=== PATIENT | male | born 1960 | race Caucasian/White ===

== ENCOUNTER 2017-06-28 15:32 | Emergency (ER) | payer BC, OTHER ==
[2017-06-28] VITALS (7 sets, daily range): BP systolic 120–168; BP diastolic 56–109; PULSE 89–142; RESP 12–20; TEMP 98.8; O2SAT 97–98
[~2017-06-28] VITALS: Ht 180.3 cm; Wt 90.0 kg
[2017-06-28] MEDS ORDERED: HALOPERIDOL LACTATE 5 MG/ML AMP ONE ×2 (16:01)
[2017-06-28] MEDS ORDERED: LORazepam 2 MG/ML VIAL ONE ×2 (16:02)
[2017-06-28] MEDS ORDERED: SODIUM CHLOR 0.9% 1000 ML INJ 1,000 ML IV SCH ×2 (16:03)
[2017-06-28] MEDS ORDERED: HALOPERIDOL LACTATE 5 MG/ML AMP IM ONE ×2 (16:15)
[2017-06-28] MEDS ORDERED: LORazepam 2 MG/ML VIAL IM ONE ×2 (16:15)
[2017-06-28] MEDS ORDERED: SODIUM CHLORIDE 0.9% FLUSH 10 ML FLUSH IV FLUSH PRN ×2 (16:15)
[2017-06-28 16:23] LABS: AUTOMATED NEUTROPHIL # 2.9 TH/MM3 (1.8-7.7); BASOPHIL # 0.1 TH/MM3 (0-0.2); BASOPHIL % 1.1 % (0.0-2.0); EOSINOPHIL # 0.1 TH/MM3 (0-0.4); EOSINOPHIL % 1.7 % (0.0-4.0); HEMATOCRIT 46.5 % (39.0-51.0); HEMOGLOBIN 16.2 GM/DL (13.0-17.0); LYMPH % 34.8 % (9.0-44.0); LYMPHOCYTE # 1.9 TH/MM3 (1.0-4.8); MEAN CELL VOLUME 93.1 FL (80.0-100.0); MEAN CORPUSCULAR HEMOGLOBIN 32.4 PG (27.0-34.0); MEAN CORPUSCULAR HGB CONC 34.8 % (32.0-36.0); MEAN PLATELET VOLUME 6.7 FL (7.0-11.0); MONO % 8.2 % (0.0-8.0); MONOCYTE # 0.4 TH/MM3 (0-0.9); NEUT % 54.2 % (16.0-70.0); PLATELET COUNT 203 TH/MM3 (150-450); RED BLOOD COUNT 4.99 MIL/MM3 (4.50-5.90); RED CELL DISTRIBUTION WIDTH 13.2 % (11.6-17.2); WHITE BLOOD COUNT 5.4 TH/MM3 (4.0-11.0)
--- NOTE | 2017-06-28 16:29 | PD ---
HPI Chief Complaint: Medical Clearance Time Seen by Provider: 16:02 Travel History International Travel<30 days: No Contact w/Intl Traveler<30days: No Traveled to known affect area: No History of Present Illness HPI 56-year-old male presents from [facility] for medical clearance. Patient says he was complaining of right shoulder and right chest rib pain after tripping and falling to his right side 3 days ago. He denies hitting his head or loss of consciousness. Denies neck pain or back pain. Denies chest pain, shortness of breath, abdominal pain, nausea, vomiting. Denies suicidal or homicidal ideations. Describes the pain as an ache. Symptoms are mild in severity. Shoulder pain is aggravated with movement. He denies paresthesias, loss of sensation, decreased range of motion, decreased strength of the affected extremity. Denies hemoptysis. Pain is aggravated with palpation and deep breathing. Has not taken any medication or drainage from this alleviates his symptoms. Reports alcohol use daily. Denies illicit drug use. Denies tobacco use. No known allergies. History of hypertension. Has no other medical complaints. No other modifying factors or associated signs and symptoms. FOR[facility]LY [facility], LATER [facility] Past Medical History Medical History: Denies Significant Hx Bipolar Disorder: Yes Depression: Yes Parkinson's Disease: Yes Migraines: Yes Past Surgical History Surgical History: No Previous Surgery Social History Alcohol Use: No Tobacco Use: No Substance Use: No Allergies-Medications (Allergen,Severity, Reaction): Coded Allergies: No Known Allergies (Unverified , 06/28/17) Reported Meds & Prescriptions Reported Meds & Active Scripts Active Ibuprofen 800 Mg Tab 800 Mg PO Q6HR PRN Review of Systems Except as stated in HPI: all other systems reviewed are Neg Physical Exam Narrative GENERAL: Well-nourished, well-developed male patient, in no acute distress SKIN: Warm and dry. HEAD: Atraumatic. Normocephalic. No facial or scalp abrasions or lacerations noted. EYES: Pupils equal and round at 5 mm with brisk reaction. No scleral icterus. No injection or drainage. No raccoon eyes. ENT: Mucosa pink and moist. No erythema or exudates. No uvular edema. No uvular , palatal, or tonsillar deviation. Airway patent. Nares without nasal blood. No rhinorrhea. EARS: Bilateral pinnae and external canals appear within normal limits. Bilateral tympanic membranes without erythema, dullness, hemotympanum or perforation. No otorrhea. No goldberg signs. NECK: Moving freely. Trachea midline. No lymphadenopathy. No obvious deformities. CHEST: Right lateral chest approximately the 6-8th rib with tenderness on palpation; without deformity or crepitance. No retractions or use of accessory muscles. CARDIOVASCULAR: Regular rate and rhythm. No murmur appreciated. RESPIRATORY: No accessory muscle use. Clear to auscultation. Breath sounds equal bilaterally. GASTROINTESTINAL: Abdomen soft, non-tender, nondistended. Hepatic and splenic margins not palpable. Bowel sounds are active 4 quadrants. MUSCULOSKELETAL: Right shoulder with full range of motion and greater than 45 abduction; shoulder sequel; without erythema, edema, ecchymosis; no obvious deformity. Right upper extremity supple and non-tense with 2+ radial pulses sensory intact without erythema or edema. No obvious deformities. No clubbing. No cyanosis. No edema. BACK: No obvious deformities. Patient sitting up in bed at 90. NEUROLOGICAL: Awake and alert. Oriented 3. No obvious cranial nerve deficits. Motor grossly within normal limits. Normal speech. Moves all extremities. 5/5 strength to all extremities. Sensory intact. PSYCHIATRIC: Appropriate mood and affect; insight and judgment normal. Data Data Last Documented VS Vital Signs Date Time Temp Pulse Resp B/P (MAP) Pulse Ox O2 Delivery O2 Flow Rate FiO2 06/28/17 21:59 89 12 128/78 (95) 98 Room Air 06/28/17 15:46 98.8 Orders Orders Haloperidol Inj (Haldol Inj) (06/28/17 16:01) Lorazepam Inj (Ativan Inj) (06/28/17 16:02) Haloperidol Inj (Haldol Inj) (06/28/17 16:15) Lorazepam Inj (Ativan Inj) (06/28/17 16:15) Complete Blood Count With Diff (06/28/17 16:03) Comprehensive Metabolic Panel (06/28/17 16:03) Electrocardiogram (06/28/17 16:03) Psych Screen (06/28/17 16:03) Drug Screen, Random Urine (06/28/17 16:03) Alcohol (Ethanol) (06/28/17 16:03) Salicylates (Aspirin) (06/28/17 16:03) Tylenol (Acetaminophen) (06/28/17 16:03) Iv Access Insert/Monitor (06/28/17 16:03) Sodium Chlor 0.9% 1000 Ml Inj (Ns 1000 M (06/28/17 16:03) Sodium Chloride 0.9% Flush (Ns Flush) (06/28/17 16:15) Restraints Violent (06/28/17 16:15) Shoulder, Complete (>2vws) (06/28/17 17:12) Ribs, Uni (W/Exp Cxr-Min 3vw) (06/28/17 18:47) Resp Incentive Spirometry (06/28/17 ) Ed Discharge Order (06/28/17 20:18) Ibuprofen (Motrin) (06/28/17 20:30) Labs Laboratory Tests Test 06/28/17 16:10 06/28/17 19:27 White Blood Count 5.4 TH/MM3 Red Blood Count 4.99 MIL/MM3 Hemoglobin 16.2 GM/DL Hematocrit 46.5 % Mean Corpuscular Volume 93.1 FL Mean Corpuscular Hemoglobin 32.4 PG Mean Corpuscular Hemoglobin Concent 34.8 % Red Cell Distribution Width 13.2 % Platelet Count 203 TH/MM3 Mean Platelet Volume 6.7 FL Neutrophils (%) (Auto) 54.2 % Lymphocytes (%) (Auto) 34.8 % Monocytes (%) (Auto) 8.2 % Eosinophils (%) (Auto) 1.7 % Basophils (%) (Auto) 1.1 % Neutrophils # (Auto) 2.9 TH/MM3 Lymphocytes # (Auto) 1.9 TH/MM3 Monocytes # (Auto) 0.4 TH/MM3 Eosinophils # (Auto) 0.1 TH/MM3 Basophils # (Auto) 0.1 TH/MM3 CBC Comment DIFF FINAL Differential Comment Blood Urea Nitrogen 7 MG/DL Creatinine 0.88 MG/DL Random Glucose 91 MG/DL Total Protein 8.5 GM/DL Albumin 4.5 GM/DL Calcium Level 9.2 MG/DL Alkaline Phosphatase 106 U/L Aspartate Amino Transf (AST/SGOT) 36 U/L Alanine Aminotransferase (ALT/SGPT) 34 U/L Total Bilirubin 0.8 MG/DL Sodium Level 139 MEQ/L Potassium Level 4.2 MEQ/L Chloride Level 103 MEQ/L Carbon Dioxide Level 24.8 MEQ/L Anion Gap 11 MEQ/L Estimat Glomerular Filtration Rate 90 ML/MIN Salicylates Level LESS THAN 1.7 MG/DL Acetaminophen Level LESS THAN 2.0 MCG/ML Ethyl Alcohol Level 257 MG/DL Urine Opiates Screen NEG Urine Barbiturates Screen NEG Urine Amphetamines Screen NEG Urine Benzodiazepines Screen NEG Urine Cocaine Screen NEG Urine Cannabinoids Screen NEG MDM Medical Decision Making Medical Screen Exam Complete: Yes Emergency Medical Condition: Yes Medical Record Reviewed: Yes Differential Diagnosis Medical clearance, shoulder injury, shoulder strain, rib contusion, rib fracture Narrative Course Patient arrives under [employer] act from [facility] for medical clearance. He is being uncooperative and so the patient was placed in locked restraints. Patient's heart rate is elevated and his pupils are dilated. He will not answer questions or give any information. Psych screen ordered. Labs and EKG ordered. Dr. Ellis ordered Haldol and Ativan to be administered. EKG was sinus tachycardia; no ST elevation or depression; reviewed by Dr. Ellis. 1950: I spoke with the patient and he is being cooperative and answering questions. I spoke with him about taking the restraints off and he agreed to be cooperative and compliant. Restraints removed. 2001: CBC, CMP unremarkable. Drug screen negative. EtOH 257. 2030: Ibuprofen administered in the ER. Chest x-ray with no acute findings. Ibuprofen prescribed for home. Patient transferred back to [facility]. Instructed patient to follow up with primary care provider. Patient verbalizes understanding and agreement with treatment plan. Patient is medically cleared and stable for discharge. Discussed reasons to return to the emergency department. Patient agrees with treatment plan. The patients vital signs are stable and the patient is stable for outpatient follow-up and treatment. Patient discharged home, stable and in no acute distress. Diagnosis Primary Impression: Medical clearance for psychiatric admission Additional Impressions: Right shoulder injury Qualified Codes: S49.91XA - Unspecified injury of right shoulder and upper arm , initial encounter Alcohol intoxication Qualified Codes: F10.920 - Alcohol use, unspecified with intoxication, uncomplicated Right rib fracture Qualified Codes: S22.31XA - Fracture of one rib, right side, initial encounter for closed fracture Ref[facility]: [facility] Instructions: Abuse of Alcohol (ED), Alcohol Dependence (ED), Alcohol Intoxication (ED), General Instructions, Rib Fracture (ED), Shoulder Sprain (ED) Additional Instructions: Tylenol or ibuprofen as needed and as directed to reduce pain and inflammation Rest, ice, and compress extremity to decrease pain and inflammation Avoid aggravating activity; increase activity as tolerated Incentive spirometer every 2 hours while awake for deep breathing exercises Follow-up with primary care provider Follow-up with orthopedics as needed Return to the emergency department immediately with worsening symptoms Med/Other Pt SpecificInfo: Prescription(s) given Scripts Ibuprofen (Ibuprofen) 800 Mg Tab 800 MG PO Q6HR Y for PAIN, #30 TAB 0 Refills Prov: Felisha Espinal 06/28/17 Disposition: 70 TRANSFER TO OTHER FACILITY Condition: Stable Felisha Espinal Jun 28, 2017 16:29
[2017-06-28 16:40] LABS: ALT (GPT) 34 U/L (12-78)
[2017-06-28 16:42] LABS: ALKALINE PHOSPHATASE 106 U/L (45-117); TOTAL BILIRUBIN ADULT 0.8 MG/DL (0.2-1.0); TOTAL PROTEIN 8.5 GM/DL (6.4-8.2)
[2017-06-28 16:43] LABS: ALBUMIN 4.5 GM/DL (3.4-5.0); AST (GOT) 36 U/L (15-37); BICARBONATE 24.8 MEQ/L (21.0-32.0); BLOOD UREA NITROGEN 7 MG/DL (7-18); CALCIUM 9.2 MG/DL (8.5-10.1); CHLORIDE 103 MEQ/L (98-107); CREATININE 0.88 MG/DL (0.60-1.30); GLOMERULAR FILTRATION RATE 90 ML/MIN (>89); GLUCOSE,RANDOM 91 MG/DL (74-106); SODIUM (NA) 139 MEQ/L (136-145)
[2017-06-28 16:51] LABS: ACETAMINOPHEN LESS THAN 2.0 MCG/ML (10.0-30.0)
--- NOTE | 2017-06-28 18:08 | RADRPT ---
EXAM DATE/TIME: 06/28/2017 17:48 [facility] COMPARISON: No previous studies available for comparison. INDICATIONS : Pain post fall. MEDICAL HISTORY : None. SURGICAL HISTORY : None. ENCOUNTER: Initial ACUITY: 3 days PAIN SCORE: 3/10 LOCATION: Right Shoulder. FINDINGS: There is normal alignment of the glenohumeral joint a normal range of motion from internal to externa l rotation. No evidence of dislocation on the transscapular Y. view. The a.c. joint is intact. The re is cortical discontinuity of the posterior lateral right 8th rib. CONCLUSION: 1. Possible lateral right 8th rib fracture. 2. Glenohumeral joint is intact. Vikas Whitfield MD on June 28, 2017 at 18:05 Board Certified Radiologist. This report was verified electronically.
[2017-06-28] MEDS ORDERED: IBUP800T23 PO ×2 (20:14)
[2017-06-28] MEDS ORDERED: IBUPROFEN 800 MG TAB PO ONE ×2 (20:30)
--- NOTE | 2017-06-28 20:37 | RADRPT ---
EXAM DATE/TIME: 06/28/2017 19:10 [facility] COMPARISON: No previous studies available for comparison. INDICATIONS : Right upper rib pain, fell MEDICAL HISTORY : None. SURGICAL HISTORY : None. ENCOUNTER: Initial ACUITY: 1 day PAIN SCORE: 09/12 LOCATION: Right Ribs FINDINGS: Multiple views of the right ribs were performed. There is no evidence of displaced fracture. No clarita tructive lesions or areas of periosteal thickening are seen. Expiratory view of the chest is negativ e for pneumothorax. The mediastinal structures are midline. CONCLUSION: Unremarkable examination of the right ribs and chest. Pancho Denton MD on June 28, 2017 at 20:35 Board Certified Radiologist. This report was verified electronically.
--- NOTE | 2017-06-28 23:14 | EKG ---
Date Performed: 06/28/2017 Time Performed: 16:07:08 PTAGE: 56 years EKG: SINUS TACHYCARDIA ABNORMAL RHYTHM ECG NO PREVIOUS TRACING DOCTOR: Tyrese Matos Interpretating Date/Time 06/28/2017 23:13:30
--- NOTE | 2017-06-28 23:14 | EKG ---
Date Performed: 06/28/2017 Time Performed: 16:07:08 PTAGE: 56 years EKG: SINUS TACHYCARDIA ABNORMAL RHYTHM ECG NO PREVIOUS TRACING DOCTOR: Tyrese Matos Interpretating Date/Time 06/28/2017 23:13:30
--- NOTE | 2017-06-28 23:14 | EKG ---
Date Performed: 06/28/2017 Time Performed: 16:07:08 PTAGE: 56 years EKG: SINUS TACHYCARDIA ABNORMAL RHYTHM ECG NO PREVIOUS TRACING DOCTOR: Tyrese Matos Interpretating Date/Time 06/28/2017 23:13:30
== END 2017-06-28 21:59 | disposition short-term general hospital (02) ==
LOC: NEPD 15:32
DX: S22.31XA Fracture of one rib, right side, initial encounter for closed fracture (principal); S49.91XA Unspecified injury of right shoulder and upper arm, initial encounter; F10.129 Alcohol abuse with intoxication, unspecified; F31.9 Bipolar disorder, unspecified; G20 Parkinson's disease; I10 Essential (primary) hypertension; W01.0XXA Fall on same level from slipping, tripping and stumbling without subsequent striking against object, initial encounter; Y90.8 Blood alcohol level of 240 mg/100 ml or more
CPT/HCPCS: 71101; 73030; 80053; 80307; 85025; 93005; 96360; 96372; 99285; J1630; J2060; J7030